=== PATIENT | female | born 1990 | race Caucasian/White ===

== ENCOUNTER 2017-12-25 15:10 | Emergency (ER) | payer OTHER ==
[~2017-12-25] VITALS: Ht 157.5 cm; Wt 47.9 kg
[2017-12-25 15:15] VITALS: BP 116/99
[2017-12-25 16:06] LABS: HEMATOCRIT 38.2 % (36.0-46.0); HEMOGLOBIN 12.9 G/DL (11.9-15.5); MCH 30.4 PG (29.0-34.0); MCHC 33.8 G/DL (30.0-36.0); MCV 89.9 FL (83-99); PLATELET COUNT 432 K/uL (156-360); RBC DIS.WIDTH-CV 14.6 % (11.8-14.6); RBC DIS.WIDTH-SD 47.8 % (39-53); RED BLOOD COUNT 4.25 M/uL (3.80-5.20); WHITE BLOOD COUNT 11.4 K/uL (4.1-10.2)
[2017-12-25 16:15] LABS: ALBUMIN 4.1 g/dL (3.2-4.8); CHLORIDE 104 mEq/L (99-109); POTASSIUM 3.8 mEq/L (3.7-5.4); SODIUM 139 mEq/L (136-147)
[2017-12-25 16:17] LABS: GLUCOSE 97 mg/dL (70-99); TOTAL PROTEIN 7.2 g/dL (6.4-8.3)
[2017-12-25 16:18] LABS: APPEARANCE CLEAR ((CLEAR)); BILIRUBIN NEGATIVE; BLOOD SMALL; COLOR YELLOW ((YELLOW)); GLUCOSE (STRIP) NEGATIVE; KETONES NEGATIVE; LEUKOCYTES NEGATIVE; NITRITE NEGATIVE; PROTEIN (STRIP) NEGATIVE; UROBILINOGEN 0.2 MG/DL (0.2-1.0)
[2017-12-25 16:19] LABS: TOTAL BILIRUBIN 0.6 mg/dL (0.0-1.0)
[2017-12-25 16:21] LABS: ALKALINE PHOSPHATASE 52 IU/L (3-129); CREATININE 0.8 mg/dL (0.6-1.3); GFR ESTIMATE (CALCULATED) > 59 mL/min/
[2017-12-25 16:22] LABS: AST (GOT) 17 IU/L (2-34); UREA NITROGEN (BUN) 8 mg/dL (9-23)
[2017-12-25 16:24] LABS: ALT (GPT) 14 IU/L (3-49)
[2017-12-25 16:29] LABS: BACTERIA RARE /HPF; EPITHELIAL CELLS 1+ /HPF; MUCUS TRACE /LPF; UCUL ADDED? NO; WHITE BLOOD CELLS 0-5 /HPF (0-5)
[2017-12-25 16:32] LABS: QUANTITATIVE HCG < 4.0 MIU/ML
== END 2017-12-25 17:50 | disposition left against medical advice (07) ==
LOC: EME 15:10
DX: R10.9 Unspecified abdominal pain (principal); Z53.21 Procedure and treatment not carried out due to patient leaving prior to being seen by health care provider
CPT/HCPCS: 80053; 81003; 84702; 85027

== ENCOUNTER 2018-01-18 19:01 | Emergency (ER) | payer OTHER ==
[~2018-01-18] VITALS: Ht 157.5 cm; Wt 48.6 kg
[2018-01-18] MEDS ORDERED: MOTRIN600 MG PO (21:02)
[2018-01-18 21:20] VITALS: BP 117/80
== END 2018-01-18 21:21 | disposition home or self-care (01) ==
LOC: EME 19:01
DX: S93.602A Unspecified sprain of left foot, initial encounter (principal); W22.8XXA Striking against or struck by other objects, initial encounter; Z88.8 Allergy status to other drugs, medicaments and biological substances
CPT/HCPCS: 73630; 99281; 99284

== ENCOUNTER 2018-02-09 02:02 | Emergency (ER) | payer OTHER ==
[~2018-02-09] VITALS: Ht 157.5 cm; Wt 51.1 kg
[~2018-02-09 02:02] MED LIST: MOTRIN600 MG PO
[2018-02-09] MEDS ORDERED: MOTRIN600 MG PO (03:39)
[2018-02-09] MEDS ORDERED: FLEXERIL10 MG PO (03:39)
[2018-02-09 03:48] VITALS: BP 101/62
== END 2018-02-09 03:48 | disposition home or self-care (01) ==
LOC: EME 02:02
DX: S33.5XXA Sprain of ligaments of lumbar spine, initial encounter (principal); V49.40XA Driver injured in collision with unspecified motor vehicles in traffic accident, initial encounter; Y92.410 Unspecified street and highway as the place of occurrence of the external cause; F32.9 Major depressive disorder, single episode, unspecified
CPT/HCPCS: 71046; 72110; 99281; 99284